=== PATIENT | female | born 1950 | race Caucasian/White ===

== ENCOUNTER → 2020-12-12 | Outpatient (CLI) | payer OTHER ==
[~2020-12-12] MED LIST: CLARITIN10 MG PO; SEPTRA DS 800 M1 TAB PO
== END | disposition home or self-care (01) ==
LOC: RAD 15:51
PROVIDERS: ATTEND Family Medicine
DX: R07.89 Other chest pain (principal); M47.819 Spondylosis without myelopathy or radiculopathy, site unspecified

== ENCOUNTER → 2022-11-15 | Outpatient (CLI) | payer OTHER | END | disposition home or self-care (01) | LOC: RAD 12:38 | PROVIDERS: ATTEND Internal Medicine | DX: M47.817 Spondylosis without myelopathy or radiculopathy, lumbosacral region (principal) ==